=== PATIENT | male | born 1950 | race Caucasian/White ===

== ENCOUNTER 2016-09-11 13:52 | Outpatient (CLI) | payer MEDICARE, BC ==
[2016-09-11 14:39] LABS: Prothrombin Time 18.6 SEC (12.0-14.7)
== END 2016-09-11 13:53 | disposition home or self-care (01) ==
LOC: BURLAB 13:52
PROVIDERS: ATTEND Nurse Practitioner
DX: I82.409 Acute embolism and thrombosis of unspecified deep veins of unspecified lower extremity (principal)
CPT/HCPCS: 36415; 85610

== ENCOUNTER 2016-10-09 08:37 | Outpatient (CLI) | payer MEDICARE, BC ==
[2016-10-09 09:13] LABS: Prothrombin Time 23.1 SEC (12.0-14.7)
== END 2016-10-09 08:38 | disposition home or self-care (01) ==
LOC: BURLAB 08:37
PROVIDERS: ATTEND Nurse Practitioner
DX: I48.91 Unspecified atrial fibrillation (principal)
CPT/HCPCS: 36415; 85610

== ENCOUNTER 2016-10-30 08:52 | Outpatient (CLI) | payer MEDICARE, BC ==
[2016-10-30 09:22] LABS: Prothrombin Time 29.3 SEC (12.0-14.7)
== END 2016-10-30 08:53 | disposition home or self-care (01) ==
LOC: BURLAB 08:52
PROVIDERS: ATTEND Nurse Practitioner
DX: I82.409 Acute embolism and thrombosis of unspecified deep veins of unspecified lower extremity (principal)
CPT/HCPCS: 36415; 85610

== ENCOUNTER 2016-11-28 09:02 | Outpatient (CLI) | payer MEDICARE, BC ==
[2016-11-28 09:24] LABS: INR-International Normal Ratio 1.9; Prothrombin Time 21.8 SEC (12.0-14.7)
== END 2016-11-28 09:03 | disposition home or self-care (01) ==
LOC: BURLAB 09:02
PROVIDERS: ATTEND Nurse Practitioner
DX: I82.409 Acute embolism and thrombosis of unspecified deep veins of unspecified lower extremity (principal)
CPT/HCPCS: 36415; 85610

== ENCOUNTER 2016-12-11 09:12 | Outpatient (CLI) | payer MEDICARE, BC ==
[2016-12-11 09:45] LABS: INR-International Normal Ratio 2.6; Prothrombin Time 27.3 SEC (12.0-14.7)
== END 2016-12-11 09:13 | disposition home or self-care (01) ==
LOC: BURLAB 09:12
PROVIDERS: ATTEND Nurse Practitioner
DX: I82.409 Acute embolism and thrombosis of unspecified deep veins of unspecified lower extremity (principal)
CPT/HCPCS: 36415; 85610

== ENCOUNTER 2016-12-25 15:04 | Outpatient (CLI) | payer MEDICARE, BC ==
[2016-12-25 15:33] LABS: INR-International Normal Ratio 3.1; Prothrombin Time 33.6 SEC (12.0-14.7)
== END 2016-12-25 15:05 | disposition home or self-care (01) ==
LOC: BURLAB 15:04
PROVIDERS: ATTEND Family Medicine
DX: I82.409 Acute embolism and thrombosis of unspecified deep veins of unspecified lower extremity (principal)
CPT/HCPCS: 36415; 85610

== ENCOUNTER 2017-01-09 11:47 | Outpatient (CLI) | payer MEDICARE, BC ==
[2017-01-09 12:11] LABS: INR-International Normal Ratio 2.8
== END 2017-01-09 11:48 | disposition home or self-care (01) ==
LOC: BURLAB 11:47
PROVIDERS: ATTEND Nurse Practitioner
DX: I82.409 Acute embolism and thrombosis of unspecified deep veins of unspecified lower extremity (principal)
CPT/HCPCS: 36415; 85610

== ENCOUNTER 2017-01-21 09:37 | Outpatient (CLI) | payer MEDICARE, BC ==
[2017-01-21 10:02] LABS: INR-International Normal Ratio 3.3; Prothrombin Time 34.8 SEC (12.0-14.7)
== END 2017-01-21 09:38 | disposition home or self-care (01) ==
LOC: BURLAB 09:37
PROVIDERS: ATTEND Nurse Practitioner
DX: I82.409 Acute embolism and thrombosis of unspecified deep veins of unspecified lower extremity (principal)
CPT/HCPCS: 36415; 85610

== ENCOUNTER 2017-02-04 09:29 | Outpatient (CLI) | payer MEDICARE, BC ==
[2017-02-04 10:06] LABS: INR-International Normal Ratio 3.2; Prothrombin Time 34.2 SEC (12.0-14.7)
== END 2017-02-04 09:30 | disposition home or self-care (01) ==
LOC: BURLAB 09:29
PROVIDERS: ATTEND Nurse Practitioner
DX: I82.409 Acute embolism and thrombosis of unspecified deep veins of unspecified lower extremity (principal)
CPT/HCPCS: 36415; 85610

== ENCOUNTER 2017-02-11 08:58 | Outpatient (CLI) | payer MEDICARE, BC ==
[2017-02-11 09:23] LABS: INR-International Normal Ratio 2.8; Prothrombin Time 30.7 SEC (12.0-14.7)
== END 2017-02-11 08:59 | disposition home or self-care (01) ==
LOC: BURLAB 08:58
PROVIDERS: ATTEND Nurse Practitioner
DX: I82.409 Acute embolism and thrombosis of unspecified deep veins of unspecified lower extremity (principal)
CPT/HCPCS: 36415; 85610

== ENCOUNTER 2017-02-20 10:10 | Outpatient (CLI) | payer MEDICARE, BC ==
[2017-02-20 10:31] LABS: INR-International Normal Ratio 1.8; Prothrombin Time 21.7 SEC (12.0-14.7)
== END 2017-02-20 10:11 | disposition home or self-care (01) ==
LOC: BURLAB 10:10
PROVIDERS: ATTEND Nurse Practitioner
DX: I82.409 Acute embolism and thrombosis of unspecified deep veins of unspecified lower extremity (principal)
CPT/HCPCS: 36415; 85610

== ENCOUNTER 2017-03-05 10:51 | Outpatient (CLI) | payer MEDICARE, BC ==
[2017-03-05 11:18] LABS: INR-International Normal Ratio 2.2; Prothrombin Time 24.9 SEC (12.0-14.7)
== END 2017-03-05 10:52 | disposition home or self-care (01) ==
LOC: BURLAB 10:51
PROVIDERS: ATTEND Nurse Practitioner
DX: I82.409 Acute embolism and thrombosis of unspecified deep veins of unspecified lower extremity (principal)
CPT/HCPCS: 36415; 85610

== ENCOUNTER 2017-03-19 09:55 | Outpatient (CLI) | payer MEDICARE, BC ==
[2017-03-19 10:29] LABS: INR-International Normal Ratio 1.8; Prothrombin Time 21.4 SEC (12.0-14.7)
== END 2017-03-19 09:56 | disposition home or self-care (01) ==
LOC: BURLAB 09:55
PROVIDERS: ATTEND Nurse Practitioner
DX: I82.409 Acute embolism and thrombosis of unspecified deep veins of unspecified lower extremity (principal)
CPT/HCPCS: 36415; 85610

== ENCOUNTER 2017-04-03 09:13 | Outpatient (CLI) | payer MEDICARE, BC ==
[2017-04-03 09:38] LABS: INR-International Normal Ratio 2.4
== END 2017-04-03 09:14 | disposition home or self-care (01) ==
LOC: BURLAB 09:13
PROVIDERS: ATTEND Nurse Practitioner
DX: I82.409 Acute embolism and thrombosis of unspecified deep veins of unspecified lower extremity (principal)
CPT/HCPCS: 36415; 85610

== ENCOUNTER 2017-04-15 08:24 | Outpatient (CLI) | payer MEDICARE, BC ==
[2017-04-15 08:49] LABS: INR-International Normal Ratio 2.1; Prothrombin Time 24.6 SEC (12.0-14.7)
== END 2017-04-15 08:25 | disposition home or self-care (01) ==
LOC: BURLAB 08:24
PROVIDERS: ATTEND Nurse Practitioner
DX: I82.409 Acute embolism and thrombosis of unspecified deep veins of unspecified lower extremity (principal)
CPT/HCPCS: 36415; 85610

== ENCOUNTER 2017-05-05 10:33 | Outpatient (CLI) | payer MEDICARE, BC ==
[2017-05-05 11:01] LABS: INR-International Normal Ratio 2.1; Prothrombin Time 24.6 SEC (12.0-14.7)
== END 2017-05-05 10:34 | disposition home or self-care (01) ==
LOC: BURLAB 10:33
PROVIDERS: ATTEND Nurse Practitioner
DX: I82.409 Acute embolism and thrombosis of unspecified deep veins of unspecified lower extremity (principal)
CPT/HCPCS: 36415; 85610

== ENCOUNTER 2017-05-19 10:00 | Outpatient (CLI) | payer MEDICARE, BC ==
[2017-05-19 10:39] LABS: INR-International Normal Ratio 2.1; Prothrombin Time 24.6 SEC (12.0-14.7)
== END 2017-05-19 10:01 | disposition home or self-care (01) ==
LOC: BURLAB 10:00
PROVIDERS: ATTEND Nurse Practitioner
DX: I82.409 Acute embolism and thrombosis of unspecified deep veins of unspecified lower extremity (principal)
CPT/HCPCS: 36415; 85610

== ENCOUNTER 2017-06-03 09:33 | Outpatient (CLI) | payer MEDICARE, BC ==
[2017-06-03 10:04] LABS: INR-International Normal Ratio 1.9; Prothrombin Time 22.7 SEC (12.0-14.7)
== END 2017-06-03 09:34 | disposition home or self-care (01) ==
LOC: BURLAB 09:33
PROVIDERS: ATTEND Nurse Practitioner
DX: I82.409 Acute embolism and thrombosis of unspecified deep veins of unspecified lower extremity (principal)
CPT/HCPCS: 36415; 85610

== ENCOUNTER 2025-05-18 17:01 | Emergency (ER) | payer MEDICARE ==
[2025-05-18] MEDS ORDERED: diphenhydrAMINE 50 MG/ML VIAL ONE (17:16)
[2025-05-18 17:36] LABS: ALT (SGPT) 38 U/L (Less than 45); AST (SGOT) 28 U/L (11-34); Albumin 4.2 g/dL (3.1-4.5); Alkaline Phosphatase 69 U/L (40-110); Anion Gap 22 mmol/L (10-20); BUN (Urea Nitrogen) 19 mg/dL (8.4-25.7); Bilirubin, Total 0.3 mg/dL (0.3-1.2); Calc. Creatinine Clearance 0 mL/min (70-130); Calcium 9.4 mg/dL (7.8-10.44); Carbon Dioxide 17 mmol/L (23-31); Chloride 109 mmol/L (98-107); Globulin 2.6 g/dL (2.4-3.5); Glucose 189 mg/dL (83-110); Hematocrit 41.7 % (42.0-52.0); Hemoglobin 14.7 g/dL (14.0-18.0); Mean Corpuscular Hemoglobin 30.5 pg (27.0-31.0); Mean Corpuscular Volume 86.5 fl (78.0-98.0); Platelet Count 238 10x3/uL (130-400); Potassium 3.6 mmol/L (3.5-5.1); Red Blood Cell (RBC) Count 4.82 mill/uL (4.70-6.10); Sodium 144 mmol/L (136-145); White Blood Cell (WBC) Count 6.2 10x3/uL (4.8-10.8)
[2025-05-18 17:39] LABS: Troponin I Less than 0.010 ng/mL (< 0.028)
[2025-05-18 17:47] LABS: MDiff Complete? YES; Platelet Adequacy Comment Appears Adequate
[2025-05-18 17:55] LABS: INR-International Normal Ratio 3.7; Prothrombin Time 37.2 sec (12.0-14.7)
[2025-05-18 17:56] LABS: PTT 38.1 sec (22.9-36.1)
[2025-05-18] MEDS ORDERED: Famotidine/PF 20 mg/2ml Vial ONE (18:08)
[2025-05-18] MEDS ORDERED: Bacitracin 1 PK ONE (18:38)
== END 2025-05-18 19:20 | disposition home or self-care (01) ==
LOC: BURERS 17:01
DX: T63.441A Toxic effect of venom of bees, accidental (unintentional), initial encounter (principal); Z79.01 Long term (current) use of anticoagulants
CPT/HCPCS: 80053; 84484; 85025; 85610; 85730; 93005; J1200; J1308; J2919; 96374; 96375